=== PATIENT | female | born 1990 | race Caucasian/White ===

== ENCOUNTER 2021-08-07 06:07 | Day surgery (SDC) | payer BC, SELFPAY ==
[~2021-08-07] VITALS: Ht 154.9 cm; Wt 74.8 kg
[2021-08-07 06:18] LABS: HCG,QUAL RESULT NEGATIVE (NEGATIVE)
[2021-08-07] MEDS ORDERED: KETOROLAC TROMETHAMINE 30 MG VIAL IVP PRN (08:30)
[2021-08-07] MEDS ORDERED: ONDANSETRON HCL 4 MG/2 ML VIAL IVP PRN (08:30)
[2021-08-07] MEDS ORDERED: MEPERIDINE HCL/PF 25 MG/ML DISP.SYRIN IVP PRN (08:30)
[2021-08-07] MEDS ORDERED: LR 1,000 ML IV SCH (08:30)
[2021-08-07] MEDS ORDERED: HYDROmorphone 1 MG/ML INJ. CARTRIDGE IVP PRN (08:30)
[2021-08-07] MEDS ORDERED: PROPOFOL 200MG/ 20ML VIAL (DIPRIVAN) IV ONE (08:38)
[2021-08-07] MEDS ORDERED: LIDOCAINE 1% 10 MG/ML, 20 ML MDV ONE (08:38)
[2021-08-07] MEDS ORDERED: ONDANSETRON HCL 4 MG/2 ML VIAL ONE (08:38)
[2021-08-07] MEDS ORDERED: NS 1000 ML IV.SOLN IV ONE (08:38)
[2021-08-07] MEDS ORDERED: fentaNYL CITRATE/PF 100 MCG/2 ML AMP ONE (08:38)
[2021-08-07] MEDS ORDERED: CIPROFLOXACIN HCL 0.3% EYE DRP 2.5 ML DROPS ONE (08:38)
[2021-08-07] MEDS ORDERED: OXYMETAZOLINE HCL 0.05% NASAL SPRAY NS ONE (08:38)
[2021-08-07] MEDS ORDERED: SEVOFLURANE 15 MIN GAS INH ONE (08:38)
[2021-08-07] MEDS ORDERED: DEXAMETHASONE SOD PHOSPHATE 4 MG/ML VIAL ONE (08:38)
[2021-08-07] MEDS ORDERED: KETOROLAC TROMETHAMINE 30 MG VIAL ONE (08:38)
[2021-08-07] MEDS ORDERED: METOCLOPRAMIDE HCL 10 MG/2 ML VIAL ONE (08:38)
[2021-08-07 10:01] VITALS: BP_SYST 114
== END 2021-08-07 10:15 | disposition home or self-care (01) ==
LOC: SDS 06:07 → SMU 06:16 → SDS 10:15
PROVIDERS: ATTEND Otolaryngology
DX: H90.3 Sensorineural hearing loss, bilateral (principal); H65.02 Acute serous otitis media, left ear; H68.101 Unspecified obstruction of Eustachian tube, right ear; E66.3 Overweight; Z68.30 Body mass index [BMI] 30.0-30.9, adult; Z79.899 Other long term (current) drug therapy
CPT/HCPCS: 36415; 69436; 84703; 87426; L8699; J1100; J1885; J2001; J2405; J2704; J2765; J3010; J7030

== ENCOUNTER 2022-04-09 05:30 | Day surgery (SDC) | payer BC, MEDICAID ==
[~2022-04-09] VITALS: Ht 154.9 cm; Wt 77.1 kg
[2022-04-09 05:43] LABS: HCG,QUAL RESULT NEGATIVE (NEGATIVE)
[2022-04-09] MEDS ORDERED: ACETAMINOPHEN I.V. 1000 MG 100 ML IV ONE (06:58)
[2022-04-09] MEDS ORDERED: NS 1000 ML IV.SOLN IV ONE (07:30)
[2022-04-09] MEDS ORDERED: CIPROFLOXACIN IV ONE (07:30)
[2022-04-09] MEDS ORDERED: PROPOFOL 200MG/ 20ML VIAL (DIPRIVAN) IV ONE (07:30)
[2022-04-09] MEDS ORDERED: fentaNYL CITRATE 250 MCG/5 ML AMP ONE (07:30)
[2022-04-09] MEDS ORDERED: LR 1,000 ML IV.SOLN IV ONE (07:30)
[2022-04-09] MEDS ORDERED: OXYMETAZOLINE HCL 0.05% NASAL SPRAY NS ONE (07:30)
[2022-04-09] MEDS ORDERED: DEXAMETHASONE SOD PHOSPHATE 4 MG/ML VIAL ONE (07:30)
[2022-04-09] MEDS ORDERED: MIDAZOLAM HCL 5 MG/5 ML VIAL ONE (07:30)
[2022-04-09] MEDS ORDERED: SEVOFLURANE 15 MIN GAS INH ONE (07:30)
[2022-04-09] MEDS ORDERED: LIDOCAINE 1% 10 MG/ML, 20 ML MDV ONE (07:30)
[2022-04-09] MEDS ORDERED: DEXTROSE IV ONE (07:30)
[2022-04-09] MEDS ORDERED: HYDROmorphone 1 MG/ML INJ. CARTRIDGE IVP PRN ×2 (08:00)
[2022-04-09] MEDS ORDERED: LR 1,000 ML IV SCH (08:00)
[2022-04-09] MEDS ORDERED: METOCLOPRAMIDE HCL 10 MG/2 ML VIAL IVP PRN (08:00)
[2022-04-09] MEDS ORDERED: MEPERIDINE HCL/PF 25 MG/ML DISP.SYRIN IVP PRN (08:00)
[2022-04-09] MEDS ORDERED: LEVO750T45 PO (08:12)
[2022-04-09] MEDS ORDERED: CELE100C PO (08:12)
[2022-04-09 10:18] VITALS: BP_SYST 142
== END 2022-04-09 10:18 | disposition home or self-care (01) ==
LOC: SDS 05:30
PROVIDERS: ATTEND Otolaryngology
DX: H65.493 Other chronic nonsuppurative otitis media, bilateral (principal); H90.3 Sensorineural hearing loss, bilateral; H68.101 Unspecified obstruction of Eustachian tube, right ear; H65.02 Acute serous otitis media, left ear; E66.9 Obesity, unspecified; Z20.822 Contact with and (suspected) exposure to COVID-19
CPT/HCPCS: 36415 ×2; 69436; 84703; 87426; 87635; J0131; J0744; J1100; J2001; J2250; J2704; J3010; J7030; J7120; L8699; U0003